=== PATIENT | male | born 1960 | race Caucasian/White ===

== ENCOUNTER 2018-08-15 16:18 | Emergency (ER) | payer BC, OTHER, SELFPAY ==
[~2018-08-15] VITALS: Ht 190.5 cm; Wt 121.0 kg
[2018-08-15] MEDS ORDERED: LABETALOL 5MG/ML, 20ML ONE (17:18)
[2018-08-15 17:20] LABS: BASOPHILS # (AUTO) 0.03 x10^3/uL (0-0.1); BASOPHILS % (AUTO) 0 % (0-1); EOSINOPHILS # (AUTO) 0.29 x10^3/uL (0-0.4); EOSINOPHILS % (AUTO) 4 % (1-7); LYMPHOCYTES # (AUTO) 0.95 x10^3/uL (1-3.4); LYMPHOCYTES % (AUTO) 14 % (22-44); MD NO; MEAN CORPUSCULAR HEMOGLOBIN 29.1 pg (27.5-34.5); MEAN CORPUSCULAR HGB CONC 33.9 g/dL (33.2-36.2); MEAN CORPUSCULAR VOLUME 85.8 fL (81-97); MEAN PLATELET VOLUME 7.5 fL (7.4-10.4); MONOCYTES # (AUTO) 0.43 x10^3/uL (0.2-0.8); MONOCYTES % (AUTO) 7 % (2-9); NEUTROPHILS # (AUTO) 4.92 x10^3/uL (1.8-6.8); NEUTROPHILS % (AUTO) 74 % (42-75); PLATELET COUNT 219 x10^3/uL (130-400); RED BLOOD COUNT 5.43 x10^6/uL (4.38-5.82); RED CELL DISTRIBUTION WIDTH 14.4 % (9.4-14.8)
[2018-08-15 17:28] LABS: ALBUMIN 2.9 g/dL (3.4-5.0); ANION GAP 8 mmol/L (5-15); CALCIUM 8.7 mg/dL (8.5-10.1); CHLORIDE 112 mmol/L (98-107); CREATININE 1.76 mg/dL (0.7-1.3)
[2018-08-15] MEDS ORDERED: LABETALOL 5MG/ML, 20ML IVPush ONE (17:30)
[2018-08-15 17:32] LABS: TROPONIN I < 0.015 ng/mL (0.000-0.045)
[2018-08-15] MEDS ORDERED: hydrALAzine 20 MG/ML, 1ML IV ONE ×2 (18:00→19:00)
[2018-08-15] MEDS ORDERED: hydrALAzine 20 MG/ML, 1ML ONE (18:52)
[2018-08-15 19:10] VITALS: BP 183/104
== END 2018-08-15 19:37 | disposition home or self-care (01) ==
LOC: ED 18:45
DX: I10 Essential (primary) hypertension (principal)
CPT/HCPCS: 36415; 80048; 82040; 84484; 85025; 93005; 96374; 96375; J0360

== ENCOUNTER → 2018-12-01 | Outpatient (CLI) | payer OTHER | END | disposition home or self-care (01) | LOC: CVU 08:13 | PROVIDERS: ATTEND Internal Medicine Cardiovascular Disease | DX: I12.9 Hypertensive chronic kidney disease with stage 1 through stage 4 chronic kidney disease, or unspecified chronic kidney disease (principal); N18.3 Chronic kidney disease, stage 3 (moderate) | CPT/HCPCS: 93975 ==